=== PATIENT | male | born 1975 | race Hispanic/Latino ===

== ENCOUNTER 2019-05-27 19:48 | Emergency (ER) | payer BC ==
--- NOTE | 2019-05-27 20:03 | Emergency Department Report ---
Blank Doc - Documentation Documentation: This is a 43-year-old male that presents with n/v. This initial assessment/diagnostic orders/clinical plan/treatment(s) is/are subject to change based on patient's health status, clinical progression and re- assessment by fellow clinical providers in the ED. Further treatment and workup at subsequent clinical providers discretion. Patient/guardians urged not to elope from the ED as their condition may be serious if not clinically assessed and managed. Initial orders include: 1- Patient sent to [facility] for further evaluation and treatment 2- labs 3- UA
--- NOTE | 2019-05-27 20:41 | XRay Report ---
Complete abdominal series with frontal chest 4 views INDICATION: Chest and abdominal pain IMPRESSION: The lungs are clear. Nonobstructive bowel gas pattern. Signer Name: Rogers Dallas MD Signed: 05/27/2019 8:36 PM Workstation Name: [id number]
[2019-05-27 20:49] LABS: Bacteria,Urine 1+ /HPF (Negative); Bilirubin,Urine NEG (Negative); Blood,Urine NEG (Negative); Color,Urine Amber (Yellow); Hyaline Casts,Urine 8 /LPF; Mucus,Urine 3+ /HPF; Urobilinogen,Urine < 2.0 mg/dL (<2.0)
[2019-05-27] MEDS ORDERED: NACL 0.9% 1000 ML 1,000 ML IV ONE ×3 (20:53→21:49)
[2019-05-27 20:54] LABS: Protein,Urine >500 mg/dL (Negative)
[2019-05-27] MEDS ORDERED: ZOFRAN IV ONE (20:54)
--- NOTE | 2019-05-27 20:56 | Emergency Department Report ---
ED N/V/D HPI - General Chief complaint: Nausea/Vomiting/Diarrhea Stated complaint: DEHYDRATED FEEL LIKE HE'S HAVING A STROKE Time Seen by Provider: 05/27/19 20:02 Source: patient Mode of arrival: Ambulatory Limitations: No Limitations - History of Present Illness Initial comments: 43-year-old male withPast medical surgical history presents to the Hospital complaining of nausea, vomiting, poor by mouth tolerance the last 2 days and heat exposure today. Patient admits to methamphetamine use several days ago. He has had very little sleep, feeling anxious, having intermittent vomiting and mild to moderate abdominal cramps. Today his truck broke down and he was outside for 5-6 hours and began to feel worse. Is no complaint of sick contacts, fevers, dysuria, melena, or hematochezia. Patient had one beer today but denies daily alcohol use. - Related Data Allergies Allergy/AdvReac Type Severity Reaction Status Date / Time No Known Allergies Allergy Unverified 05/27/19 20:05 ED Review of Systems ROS: Stated complaint: DEHYDRATED FEEL LIKE HE'S HAVING A STROKE Other details as noted in HPI Comment: All other systems reviewed and negative ED Past Medical Hx - Past Medical History Previous Medical History?: No - Surgical History Past Surgical History?: No - Social History Smoking Status: Current Every Day Smoker Substance Use Type: Alcohol, Marijuana, Methamphetamines ED Physical Exam - General Limitations: No Limitations - Other Other exam information: General: No acute distress Eyes: Normal appearance, pupils equal reactive to light, extraocular movements intact ENT: Normal oropharynx Neck: Normal appearance, no C-spine tenderness, no meningismus Chest: Clear to auscultation bilaterally, no wheezes, rales, or crackles Cardiovascular: Regular rate and rhythm Abdomen: Soft, nondistended, nontender, no rebound or guarding, normal bowel sounds Back: Normal inspection, nontender Extremity: Normal inspection, no deformity, full range of motion Neuro: Alert and oriented 3, speech clear, no gross motor or sensory deficit Skin: No rash, once, or erythema ED Course Vital Signs 05/27/19 05/27/19 05/27/19 19:53 21:17 21:43 Temperature 98.2 F Pulse Rate 127 H 96 H Respiratory 20 18 17 Rate Blood Pressure 136/99 Blood Pressure 156/96 [Left] O2 Sat by Pulse 93 98 98 Oximetry 05/27/19 05/27/19 05/27/19 22:31 23:00 23:29 Temperature Pulse Rate 86 90 99 H Respiratory 18 9 L 17 Rate Blood Pressure 137/75 144/106 144/106 Blood Pressure [Left] O2 Sat by Pulse 97 99 98 Oximetry 05/28/19 05/28/19 05/28/19 00:01 00:31 01:05 Temperature Pulse Rate 98 H 90 99 H Respiratory 13 15 25 H Rate Blood Pressure 144/106 142/71 Blood Pressure 149/94 [Left] O2 Sat by Pulse 94 97 99 Oximetry - Reevaluation(s) Reevaluation #1: 05/27/19 22:34 pt has ck elevation. declines admission. willing to stay for hydration and ck recheck. he report feeling better with ed tx so far. ED Medical Decision Making - Lab Data Result diagrams: 05/27/19 20:48 05/28/19 00:52 Lab Results 05/27/19 05/27/19 05/27/19 Range/Units 20:21 20:21 20:48 WBC 12.6 H (4.5-11.0) K/mm3 RBC 5.39 H (3.65-5.03) M/mm3 Hgb 16.9 H (11.8-15.2) gm/dl Hct 49.7 H (35.5-45.6) % MCV 92 (84-94) fl MCH 31 (28-32) pg MCHC 34 (32-34) % RDW 13.2 (13.2-15.2) % Plt Count 358 (140-440) K/mm3 Lymph % (Auto) 17.7 (13.4-35.0) % [place] % (Auto) 11.3 H (0.0-7.3) % Eos % (Auto) 0.7 (0.0-4.3) % Baso % (Auto) 0.5 (0.0-1.8) % Lymph # 2.2 (1.2-5.4) K/mm3 [place] # 1.4 H (0.0-0.8) K/mm3 Eos # 0.1 (0.0-0.4) K/mm3 Baso # 0.1 (0.0-0.1) K/mm3 Seg Neutrophils % 69.8 (40.0-70.0) % Seg Neutrophils # 8.8 H (1.8-7.7) K/mm3 Sodium (137-145) mmol/L Potassium (3.6-5.0) mmol/L Chloride (98-107) mmol/L Carbon Dioxide (22-30) mmol/L Anion Gap mmol/L BUN (9-20) mg/dL Creatinine (0.8-1.5) mg/dL Estimated GFR ml/min BUN/Creatinine Ratio % Glucose (75-100) mg/dL Calcium (8.4-10.2) mg/dL Magnesium (1.7-2.3) mg/dL Total Bilirubin (0.1-1.2) mg/dL AST (5-40) units/L ALT (7-56) units/L Alkaline Phosphatase (35-129) units/L Total Creatine Kinase (55-170) units/L Total Protein (6.3-8.2) g/dL Albumin (3.9-5) g/dL Albumin/Globulin Ratio % Lipase (13-60) units/L Urine Color Ruby (Yellow) Urine Turbidity Slightly-cloudy (Clear) Urine pH 5.0 (5.0-7.0) Ur Specific [place] 1.025 (1.003-1.030) Urine Protein >500 (Negative) mg/dL Urine Glucose (UA) Neg (Negative) mg/dL Urine Ketones Neg (Negative) mg/dL Urine Blood Neg (Negative) Urine Nitrite Neg (Negative) Urine Bilirubin Neg (Negative) Urine Urobilinogen < 2.0 (<2.0) mg/dL Ur Leukocyte Esterase Neg (Negative) Urine WBC (Auto) 3.0 (0.0-6.0) /HPF Urine RBC (Auto) 5.0 (0.0-6.0) /HPF U Epithel Cells (Auto) 1.0 (0-13.0) /HPF Urine Bacteria (Auto) 1+ (Negative) /HPF Hyaline Casts 8 /LPF Urine Mucus 3+ /HPF Urine Opiates Screen Presumptive negative Urine Methadone Screen Presumptive negative Ur Barbiturates Screen Presumptive negative Ur Phencyclidine Scrn Presumptive negative Ur Amphetamines Screen Presumptive positive U Benzodiazepines Scrn Presumptive positive Urine Cocaine Screen Presumptive negative U Marijuana (THC) Screen Presumptive positive Drugs of Abuse Note Disclamer 05/27/19 05/27/19 05/27/19 Range/Units 20:48 20:54 20:54 WBC (4.5-11.0) K/mm3 RBC (3.65-5.03) M/mm3 Hgb (11.8-15.2) gm/dl Hct (35.5-45.6) % MCV (84-94) fl MCH (28-32) pg MCHC (32-34) % RDW (13.2-15.2) % Plt Count (140-440) K/mm3 Lymph % (Auto) (13.4-35.0) % [place] % (Auto) (0.0-7.3) % Eos % (Auto) (0.0-4.3) % Baso % (Auto) (0.0-1.8) % Lymph # (1.2-5.4) K/mm3 [place] # (0.0-0.8) K/mm3 Eos # (0.0-0.4) K/mm3 Baso # (0.0-0.1) K/mm3 Seg Neutrophils % (40.0-70.0) % Seg Neutrophils # (1.8-7.7) K/mm3 Sodium 141 (137-145) mmol/L Potassium 4.1 (3.6-5.0) mmol/L Chloride 97.7 L (98-107) mmol/L Carbon Dioxide 25 (22-30) mmol/L Anion Gap 22 mmol/L BUN 23 H (9-20) mg/dL Creatinine 1.5 (0.8-1.5) mg/dL Estimated GFR 51 ml/min BUN/Creatinine Ratio 15 % Glucose 116 H (75-100) mg/dL Calcium 10.1 (8.4-10.2) mg/dL Magnesium 2.00 (1.7-2.3) mg/dL Total Bilirubin 1.30 H (0.1-1.2) mg/dL AST 61 H (5-40) units/L ALT 48 (7-56) units/L Alkaline Phosphatase 144 H (35-129) units/L Total Creatine Kinase 2273 H (55-170) units/L Total Protein 9.1 H (6.3-8.2) g/dL Albumin 5.0 (3.9-5) g/dL Albumin/Globulin Ratio 1.2 % Lipase 128 H (13-60) units/L Urine Color (Yellow) Urine Turbidity (Clear) Urine pH (5.0-7.0) Ur Specific [place] (1.003-1.030) Urine Protein (Negative) mg/dL Urine Glucose (UA) (Negative) mg/dL Urine Ketones (Negative) mg/dL Urine Blood (Negative) Urine Nitrite (Negative) Urine Bilirubin (Negative) Urine Urobilinogen (<2.0) mg/dL Ur Leukocyte Esterase (Negative) Urine WBC (Auto) (0.0-6.0) /HPF Urine RBC (Auto) (0.0-6.0) /HPF U Epithel Cells (Auto) (0-13.0) /HPF Urine Bacteria (Auto) (Negative) /HPF Hyaline Casts /LPF Urine Mucus /HPF Urine Opiates Screen Urine Methadone Screen Ur Barbiturates Screen Ur Phencyclidine Scrn Ur Amphetamines Screen U Benzodiazepines Scrn Urine Cocaine Screen U Marijuana (THC) Screen Drugs of Abuse Note - EKG Data -: EKG Interpreted by Me EKG shows normal: sinus rhythm, axis (qrs 1), QRS complexes (qrsd 98), ST-T waves (no stemi) Rate: tachycardia (104) - Radiology Data Radiology results: report reviewed Complete abdominal series with frontal chest 4 views INDICATION: Chest and abdominal pain IMPRESSION: The lungs are clear. Nonobstructive bowel gas pattern. - Medical Decision Making pt declined admission He received 3 L of normal saline and BMP and CKs were repeated to ensure trend downward trend After blood draw patient did not want to wait for results and is signing out against medical He was informed about the size of her elevated CK causing renal failure labs evaluated after pt left the department (1:56am) ck trending down cr improving pt informed of need for oral hydration prior to ama no need for call back at this time. - Differential Diagnosis drug abuse, dehydration, heat exhaustion/cramps, gastritis, Critical Care Time: No Critical care attestation.: If time is entered above; I have spent that time in minutes in the direct care of this critically ill patient, excluding procedure time. ED Disposition Clinical Impression: Elevated CK, Dehydration, Methamphetamine abuse, Benzodiazepine abuse Disposition: LEFT AGAINST MED ADVICE Is pt being admited?: No Does the pt Need Aspirin: No Condition: Stable Instructions: Rhabdomyolysis (ED), Benzodiazepine Abuse (ED), Methamphetamine Abuse (ED) Additional Instructions: Your signing out AGAINST MEDICAL ADVICE and prior to your repeat labs. We are concerned about your muscle enzymes being elevated which could lead to kidney failure. Follow-up with your doctor or with a doctor/clinic provided. Return is symptoms worsen as indicated by the discharge instructions. Referrals: KRISTOFER PALAFOX MD [Primary Care Provider] - 3-5 Days [facility] [Provider Group] - 3-5 Days Forms: AMA Form Time of Disposition: 01:29
[2019-05-27 21:02] LABS: Basophils # (Auto) 0.1 K/mm3 (0.0-0.1); Basophils % (Auto) 0.5 % (0.0-1.8); Eosinophils # (Auto) 0.1 K/mm3 (0.0-0.4); Eosinophils % (Auto) 0.7 % (0.0-4.3); Hematocrit 49.7 % (35.5-45.6); Hemoglobin 16.9 gm/dl (11.8-15.2); Lymphocytes # (Auto) 2.2 K/mm3 (1.2-5.4); Lymphocytes % (Auto) 17.7 % (13.4-35.0); Mean Corpuscular HGB Conc 34 % (32-34); Mean Corpuscular Volume 92 fl (84-94); Monocytes # (Auto) 1.4 K/mm3 (0.0-0.8); Monocytes % (Auto) 11.3 % (0.0-7.3); Platelet Count 358 K/mm3 (140-440); Red Blood Count 5.39 M/mm3 (3.65-5.03); Red Cell Distribution Width 13.2 % (13.2-15.2)
[2019-05-27 21:15] LABS: Cocaine Screen,Urine PRESUMPTIVE NEGATIVE; Methadone Screen,Urine PRESUMPTIVE NEGATIVE; Opiate Screen,Urine PRESUMPTIVE NEGATIVE
[2019-05-27 21:22] LABS: Calcium 10.1 mg/dL (8.4-10.2)
[2019-05-27] MEDS ORDERED: ALUM-MAG HYDROX-SIMETH 200-200-20MG/5ML PO ONE (21:22)
[2019-05-27] MEDS ORDERED: PEPCID IV ONE (21:22)
[2019-05-27] MEDS ORDERED: LIDOCAINE VISCOUS 2% PO ONE (21:22)
[2019-05-27 21:45] LABS: Amphetamine Screen,Urine PRESUMPTIVE POSITIVE; Benzodiazepines Screen,Urine PRESUMPTIVE POSITIVE; Cannabinoid Screen,Urine PRESUMPTIVE POSITIVE
[2019-05-28 01:16] VITALS: BP 142/71
[2019-05-28 01:34] LABS: BUN/Creatinine Ratio 18; Blood Urea Nitrogen 21 mg/dL (9-20); Calcium 8.7 mg/dL (8.4-10.2); Hemolysis Index 9
== END 2019-05-28 01:40 | disposition left against medical advice (07) ==
LOC: ED 19:48
DX: E86.0 Dehydration (principal); F15.10 Other stimulant abuse, uncomplicated; F19.10 Other psychoactive substance abuse, uncomplicated; F17.200 Nicotine dependence, unspecified, uncomplicated; F12.90 Cannabis use, unspecified, uncomplicated
CPT/HCPCS: 36415; 74022; 80048; 80053; 80307; 81001; 82550; 83690; 83735; 85025; 93005; 93010; 96361; 96374; 96375; 99284; J2405; J7030